=== PATIENT | female | born 1945 | race Caucasian/White ===

== ENCOUNTER 2019-12-30 13:06 | Inpatient (IN) ==
[2019-12-30] MEDS ORDERED: SODIUM CHLORIDE 0.9% 1,000 ML IV STA (14:36)
[2019-12-30 14:57] LABS: Basophils # 0.1 10*3/uL (0.0-0.2); Basophils % 0.3 % (0.0-0.8); Hematocrit 42.9 VOL% (35.7-47.0); Hemoglobin 13.9 GM/DL (12.0-16.0); Immature Granulocytes % 0.6 %; Lymphocytes % 16.6 % (21.3-54.2); Mean Corpuscular HGB Conc 32.4 GM/DL (32-36); Mean Corpuscular Volume 95.1 FL (87-102); Mean Platelet Volume 10.2 FL (9.6-12.0); Monocytes % 8.7 % (1.7-12.7); Neutrophils % 73.8 % (38.7-73.9); Platelet Count 258 T/CUMM (130-400); Red Blood Count 4.51 MC/CUMM (3.8-5.5); Red Cell Distribution Width 13.7 % (9.3-17.3); White Blood Count 17.9 T/CUMM (4-12)
[2019-12-30 15:18] LABS: Albumin 3.2 G/DL (3.4-5.0); Bilirubin,Total 0.6 MG/DL (0.2-1.0); Calcium 8.8 MG/DL (8.5-10.1); Osmolality,Calculated 268.4 MOS/KG (273-304); Total Protein 7.8 G/DL (6.4-8.3)
[2019-12-30] MEDS ORDERED: LEVOFLOXACIN INJ 750 MG in PREMIX 1 EACH IV STA (15:20)
[2019-12-30 16:22] LABS: Apearance,Urine CLEAR (Clear); Bilirubin,Urine Negative (Negative); Blood, Urine Negative (Negative); Glucose,Urine (UA) Negative (Negative); Ketones,Urine 5 mg/dL (Negative); Nitrite,Urine Negative (Negative); Protein,Urine Negative; RBC,Urine <1 /HPF (0-4); Urine Color Straw (Yellow); Urine Specific Gravity 1.003 (1.001-1.035); Urine Urobilinogen < 2.0 EU/DL (0.2-1.0)
[2019-12-30] MEDS ORDERED: LEVOFLOXACIN INJ 750 MG in PREMIX 1 EACH IV SCH (17:22)
[2019-12-30] MEDS ORDERED: ONDANSETRON 4 MG/2 ML VIAL IV PRN (17:22)
[2019-12-30] MEDS ORDERED: ACETAMINOPHEN 325 MG TABLET PO PRN (17:22)
[2019-12-30] MEDS ORDERED: MORPHINE 4 MG/1 ML VIAL IV PRN (17:22)
[2019-12-30] MEDS: SODIUM CHLORIDE 0.45% 1,000 ML IV SCH (18:41)
[2019-12-30 19:02] LABS: Free T4 (Free Thyroxine) 1.36 NG/DL (0.76-1.46); Thyroid Stimulating Hormone 0.53 uIU/ml (0.358-3.74)
[2019-12-30] MEDS: DIVALPROEX 500 MG TABLET PO SCH (20:57)
[2019-12-30] MEDS: LURASIDONE 40 MG TABLET PO SCH (20:57)
[2019-12-31] MEDS: SODIUM CHLORIDE 0.45% 1,000 ML IV SCH ×3 (01:52→21:59)
[2019-12-31 09:19] LABS: Basophils % 0.3 % (0.0-0.8); Eosinophils # 0.1 10*3/uL (0.0-0.87); Eosinophils % 0.5 % (0.00-10.9); Hematocrit 40.8 VOL% (35.7-47.0); Hemoglobin 13.5 GM/DL (12.0-16.0); Immature Granulocytes % 0.5 %; Immature Granulocytes Absolute 0.06 #; Lymphocytes # 3.2 10*3/uL (1.4-4.0); Lymphocytes % 24.5 % (21.3-54.2); Mean Corpuscular HGB Conc 33.1 GM/DL (32-36); Mean Corpuscular Volume 95.1 FL (87-102); Mean Platelet Volume 9.9 FL (9.6-12.0); Monocytes % 12.9 % (1.7-12.7); Neutrophils % 61.3 % (38.7-73.9); Platelet Count 208 T/CUMM (130-400); Red Blood Count 4.29 MC/CUMM (3.8-5.5); Red Cell Distribution Width 13.9 % (9.3-17.3)
[2019-12-31 09:34] LABS: Albumin 2.4 G/DL (3.4-5.0); Bilirubin,Total 0.8 MG/DL (0.2-1.0); Calcium 8.5 MG/DL (8.5-10.1); Total Protein 6.9 G/DL (6.4-8.3)
[2019-12-31 09:36] LABS: Troponin I < 0.015 NG/ML (0.00-0.045)
[2019-12-31] MEDS: cefOXitin 1,000 MG in SYRINGE 1 EACH IV SCH ×2 (10:25→16:43)
[2019-12-31] MEDS: DIVALPROEX 500 MG TABLET PO SCH ×2 (10:27→21:59)
[2019-12-31 10:45] LABS: Hepatitis B Core IgM Quant 0.08 Index; Hepatitis B Surface Ag Quant < 0.10 Index; Hepatitis B Surface Ag Result Negative (Negative); Hepatitis C Virus Ab Quant 0.06 Index; Hepatitis C Virus Ab Result Negative (Negative)
[2019-12-31] MEDS: FUROSEMIDE 40 MG TABLET PO SCH (11:07)
[2019-12-31] MEDS: LEVOTHYROXINE 125 MCG TABLET PO SCH (11:07)
[2019-12-31] MEDS: PANTOPRAZOLE 40 MG TABLET PO SCH (11:07)
[2019-12-31] MEDS: DESITIN 4OZ/NYSTATIN 15 GRAM MIXTURE PASTE TOP SCH ×2 (15:30→21:58)
[2019-12-31] MEDS: LURASIDONE 40 MG TABLET PO SCH (21:59)
[2020-01-01] MEDS: cefOXitin 1,000 MG in SYRINGE 1 EACH IV SCH ×5 (00:23→22:54)
[2020-01-01] MEDS: SODIUM CHLORIDE 0.45% 1,000 ML IV SCH ×4 (04:06→16:54)
[2020-01-01 05:49] LABS: Basophils % 0.2 % (0.0-0.8); Eosinophils # 0.2 10*3/uL (0.0-0.87); Eosinophils % 1.3 % (0.00-10.9); Hematocrit 34.9 VOL% (35.7-47.0); Hemoglobin 11.4 GM/DL (12.0-16.0); Immature Granulocytes % 0.5 %; Immature Granulocytes Absolute 0.06 #; Lymphocytes # 4.2 10*3/uL (1.4-4.0); Lymphocytes % 32.6 % (21.3-54.2); Mean Corpuscular HGB Conc 32.7 GM/DL (32-36); Mean Corpuscular Volume 95.9 FL (87-102); Mean Platelet Volume 10.8 FL (9.6-12.0); Monocytes % 10.7 % (1.7-12.7); Neutrophils % 54.7 % (38.7-73.9); Platelet Count 204 T/CUMM (130-400); Red Blood Count 3.64 MC/CUMM (3.8-5.5); Red Cell Distribution Width 13.8 % (9.3-17.3); White Blood Count 12.7 T/CUMM (4-12)
[2020-01-01 06:10] LABS: Bilirubin,Total 0.8 MG/DL (0.2-1.0); Total Protein 6.1 G/DL (6.4-8.3)
[2020-01-01] MEDS: PANTOPRAZOLE 40 MG TABLET PO SCH ×2 (07:35→08:57)
[2020-01-01] MEDS: DIVALPROEX 500 MG TABLET PO SCH ×3 (07:35→20:41)
[2020-01-01] MEDS ORDERED: LIDOCAINE 1%/EPI INJ 20 ML VIAL ONE (07:38)
[2020-01-01] MEDS ORDERED: BUPIVACAINE MPF 0.25% 30 ML VIAL ONE (07:38)
[2020-01-01] MEDS ORDERED: SEVOFLURANE 1 UNIT/15 MINUTE INH ONE (09:40)
[2020-01-01] MEDS ORDERED: LIDOCAINE 2% 5 ML VIAL ONE (09:40)
[2020-01-01] MEDS ORDERED: propofoL 200 MG/20 ML VIAL IV ONE (09:40)
[2020-01-01] MEDS ORDERED: ROCURONIUM 100 MG/10 ML VIAL IV ONE (09:41)
[2020-01-01] MEDS ORDERED: GLYCOPYRROLATE 0.4 MG/2 ML VIAL ONE (09:41)
[2020-01-01] MEDS ORDERED: ONDANSETRON 4 MG/2 ML VIAL ONE (09:41)
[2020-01-01] MEDS ORDERED: NEOSTIGMINE 10 MG/10 ML VIAL ONE (09:41)
[2020-01-01] MEDS ORDERED: LACTATED RINGERS 1,000 ML IV ONE (09:41)
[2020-01-01] MEDS ORDERED: fentaNYL 100 MCG/2 ML VIAL ONE (09:41)
[2020-01-01] MEDS ORDERED: PHENYLEPHRINE 1 MG/10 ML SYRINGE IV ONE (09:41)
[2020-01-01] MEDS: LEVOTHYROXINE 125 MCG TABLET PO SCH (10:32)
[2020-01-01] MEDS: POTASSIUM CHLORIDE RIDER 10 MEQ in PREMIX 1 EACH IV PRN ×5 (10:32→23:00)
[2020-01-01] MEDS: FUROSEMIDE 40 MG TABLET PO SCH (12:44)
[2020-01-01] MEDS: DESITIN 4OZ/NYSTATIN 15 GRAM MIXTURE PASTE TOP SCH ×2 (12:44→20:44)
[2020-01-01] MEDS: LURASIDONE 40 MG TABLET PO SCH (20:41)
[2020-01-02] MEDS: POTASSIUM CHLORIDE RIDER 10 MEQ in PREMIX 1 EACH IV PRN (02:00)
[2020-01-02] MEDS: SODIUM CHLORIDE 0.45% 1,000 ML IV SCH ×3 (02:59→18:35)
[2020-01-02 05:31] LABS: Basophils % 0.2 % (0.0-0.8); Eosinophils % 0.1 % (0.00-10.9); Hematocrit 35.6 VOL% (35.7-47.0); Hemoglobin 11.7 GM/DL (12.0-16.0); Immature Granulocytes % 0.5 %; Immature Granulocytes Absolute 0.08 #; Lymphocytes # 3.3 10*3/uL (1.4-4.0); Lymphocytes % 21.7 % (21.3-54.2); Mean Corpuscular HGB Conc 32.9 GM/DL (32-36); Mean Corpuscular Volume 95.2 FL (87-102); Mean Platelet Volume 10.6 FL (9.6-12.0); Monocytes % 9.1 % (1.7-12.7); Neutrophils % 68.4 % (38.7-73.9); Platelet Count 210 T/CUMM (130-400); Red Blood Count 3.74 MC/CUMM (3.8-5.5); Red Cell Distribution Width 13.7 % (9.3-17.3); White Blood Count 15.2 T/CUMM (4-12)
[2020-01-02] MEDS: cefOXitin 1,000 MG in SYRINGE 1 EACH IV SCH ×4 (05:31→22:39)
[2020-01-02 06:00] LABS: Albumin 1.8 G/DL (3.4-5.0); Bilirubin,Total 0.7 MG/DL (0.2-1.0); Calcium 8.1 MG/DL (8.5-10.1); Osmolality,Calculated 257.8 MOS/KG (273-304); Total Protein 6.2 G/DL (6.4-8.3)
[2020-01-02] MEDS: DIVALPROEX 500 MG TABLET PO SCH ×2 (09:34→21:11)
[2020-01-02] MEDS: DESITIN 4OZ/NYSTATIN 15 GRAM MIXTURE PASTE TOP SCH ×2 (09:35→21:12)
[2020-01-02] MEDS: LEVOTHYROXINE 125 MCG TABLET PO SCH (09:35)
[2020-01-02] MEDS: FUROSEMIDE 40 MG TABLET PO SCH (09:35)
[2020-01-02] MEDS: PANTOPRAZOLE 40 MG TABLET PO SCH (09:35)
[2020-01-02] MEDS ORDERED: TUBERCULIN SKIN TEST 0.1 ML SYRINGE INTRADERM ONE (09:39)
[2020-01-02] MEDS: LURASIDONE 40 MG TABLET PO SCH (21:12)
[2020-01-03] MEDS: SODIUM CHLORIDE 0.45% 1,000 ML IV SCH (02:54)
[2020-01-03] MEDS: cefOXitin 1,000 MG in SYRINGE 1 EACH IV SCH ×3 (04:10→16:38)
[2020-01-03 05:46] LABS: Basophils % 0.3 % (0.0-0.8); Eosinophils # 0.3 10*3/uL (0.0-0.87); Eosinophils % 2.6 % (0.00-10.9); Hematocrit 32.5 VOL% (35.7-47.0); Hemoglobin 10.5 GM/DL (12.0-16.0); Immature Granulocytes % 0.5 %; Immature Granulocytes Absolute 0.06 #; Lymphocytes # 3.7 10*3/uL (1.4-4.0); Lymphocytes % 30.1 % (21.3-54.2); Mean Corpuscular HGB Conc 32.3 GM/DL (32-36); Mean Corpuscular Volume 97.3 FL (87-102); Mean Platelet Volume 10.4 FL (9.6-12.0); Monocytes % 8.5 % (1.7-12.7); Platelet Count 196 T/CUMM (130-400); Red Blood Count 3.34 MC/CUMM (3.8-5.5); Red Cell Distribution Width 13.7 % (9.3-17.3); White Blood Count 12.2 T/CUMM (4-12)
[2020-01-03] MEDS: LEVOTHYROXINE 125 MCG TABLET PO SCH (09:34)
[2020-01-03] MEDS: PANTOPRAZOLE 40 MG TABLET PO SCH (09:34)
[2020-01-03] MEDS: FUROSEMIDE 40 MG TABLET PO SCH (09:35)
[2020-01-03] MEDS: DIVALPROEX 500 MG TABLET PO SCH (09:35)
[2020-01-03] MEDS: DESITIN 4OZ/NYSTATIN 15 GRAM MIXTURE PASTE TOP SCH (09:36)
[2020-01-03 20:11] VITALS: BP 112/64
== END 2020-01-03 19:50 | disposition home health service (06) | DRG 419 ==
LOC: N.ED 13:06 → N.EDINP 16:03 → N.3E 17:03
PROVIDERS: ADMIT Surgery; ATTEND Surgery
PROC: LAPCHOL (2020-01-01 08:14)